=== PATIENT | male | born 1955 | race Caucasian/White ===

== ENCOUNTER 2025-02-13 05:07 | Inpatient (IN) | payer OTHER, SELFPAY ==
[2025-02-13] VITALS (24 sets, daily range): BP systolic 83–126; BP diastolic 48–72
[2025-02-13] MEDS: NSS 500 IV (02:00)
[2025-02-13 02:04] LABS: Urine Character Cloudy (Clear)
[2025-02-13 02:06] LABS: Hematocrit 44.7 % (39.0-52.0); Hemoglobin 15.5 g/dL (13.0-18.0); Mean Corp Hgb Conc. 34.7 g/dL (33.0-37.0); Mean Corpuscular Volume 86.8 fL (80.0-94.0); Nucleated Red Blood Cells % 0 % (-); Platelet Count 196 10^3/uL (130-400); Red Cell Dist. Width 14.4 % (11.5-14.5)
[2025-02-13 02:24] LABS: INR 1.16; PT 14.6 Sec (11.4-14.6)
[2025-02-13 02:29] LABS: AST (SGOT) 28 U/L (17-59); Albumin 4.5 g/dl (3.5-5.0); Alkaline Phosphatase 155 U/L (38-126); Blood Urea Nitrogen 19 mg/dl (9-20); Calcium 9.4 mg/dl (8.4-10.2); Carbon Dioxide 22 mmol/L (22-30); Chloride 105 mmol/L (98-107); Glucose 157 mg/dl (70-99); Potassium 4.4 mmol/L (3.5-5.1); Sodium 138 mmol/L (135-145); Total Protein 8.3 g/dl (6.3-8.2); eGFR > 60.00
[2025-02-13 02:49] LABS: ALT (SGPT) 25 U/L (0-50)
[2025-02-13 02:55] LABS: Urine Red Blood Cell >100 /HPF (0-2); Urine White Cell 26-30 /HPF (0-5)
[2025-02-13] MEDS: ZOSYN 100 IV (03:17)
[2025-02-13] MEDS: NSS 1500 IV (03:23)
--- NOTE | 2025-02-13 03:23 | ED.GENMED ---
History of Present Illness
General
Chief Complaint: Rectal Bleeding
Source: patient
Exam Limitations: clinical condition
Time Seen by Provider: 02/13/25 01:33
History of Present Illness
History of Present Illness:
Note:
CHIEF COMPLAINT(S)
Febrile episode and evaluation for potential infection.
HISTORY OF PRESENT ILLNESS
The patient is a 69-year-old male who presented with a fever. The patient was noted to have a febrile response with a temperature reaching 104.8 degrees Fahrenheit. He was identified as having a history of urinary tract infections and benign
prostatic hyperplasia. During examination, there was an exudate noted at the orifice of the suprapubic catheter.
PAST MEDICAL AND SURGICAL HISTORY
History of benign prostatic hyperplasia, dysphagia, urinary tract infections, insomnia, and quadriplegia
- Diabetes
- Depression
- Essential hypertension
- Bladder neck obstruction
- Incomplete C1-C4 quadriplegia
PHYSICAL EXAM
General: Febrile, alert, no acute distress. No hypoxia. Febrile
Skin: Warm, dry.
Neck: Supple, trachea midline.
Eye Ears, nose, mouth, and throat: Oral mucosa moist.
Cardiovascular: Tachycardic but regular rhythm, no edema of extremities, blood pressure 126/72 mmHg.
Respiratory: Respirations are non-labored.
Gastrointestinal: Abdomen nondistended, no pain reported.
Musculoskeletal: Upper extremities are contracted, and lower extremities show equine deformity.
Neurological: Alert and oriented to person, place, time, and situation.
PROBLEM LIST
Acute:
- Febrile episode potentially indicative of infection.
- Exudate noted at the orifice of the suprapubic catheter.
Chronic:
- Benign prostatic hyperplasia.
- Dysphagia.
- Insomnia.
- Correa Pellegia.
DIFFERENTIAL DIAGNOSIS
The Differential Diagnosis includes, in no particular order and is not limited to:
1. Urinary tract infection (UTI)
2. Catheter-associated urinary tract infection
3. Pyelonephritis
4. Sepsis
5. Influenza
6. COVID-19
7. Upper respiratory infection
8. Bacterial infection secondary to dysphagia
9. Endocarditis
10. Prostatitis
Disposition:
SUMMARY OF ENCOUNTER
The patient is a 69-year-old male with a chronic suprapubic catheter who presented to the emergency department due to concern from staff about dark red urine, rectal bleeding, vomiting, and a fever reaching 104.8�F. Laboratory results revealed mild
leukocytosis with a white blood cell count of 11,000 and a left shift indicating 91% neutrophils. The chemistry panel showed normal sodium, potassium, chloride, bicarbonate, BUN, and creatinine, but an elevated lactic acid of 4.7 mmol/L. AST and ALT
levels were normal. Urinalysis showed positive leukocyte esterase, cloudy urine, moderate bacteria, and 26 to 30 white blood cells per high power field, which suggested a urinary tract infection. Considering the patients symptoms and potential
infection, he was admitted for further management and broad-spectrum antibiotics were initiated. Additionally, 30 cc/kg of intravenous fluids were ordered. COVID-19 and influenza testing were planned, and a chest X-ray was considered.
DISPOSITION
Admit
ASSESSMENT
The patient is presenting with symptoms suggestive of a urinary tract infection, possibly catheter-associated, with additional febrile response and elevated lactic acid level, all indicative of a potential systemic infection requiring inpatient care.
EMERGENCY TREATMENTS ADMINISTERED
Broad-spectrum intravenous antibiotics and intravenous fluids at 30 cc/kg.
PLAN
Admit for further evaluation and treatment with broad-spectrum antibiotics. Consider continued monitoring of vital signs, labs, and follow-up cultures to ensure effective management of the suspected infection.
INDEPENDENT REVIEW OF LABS AND INTERPRETATION OF TESTS
- My independent review of the CBC indicates mild leukocytosis at 11,000 with a left shift and 91% neutrophils.
- My independent review of the chemistry panel shows normal sodium, potassium, chloride, bicarbonate, BUN, and creatinine, with an elevated lactic acid level of 4.7 mmol/L.
- My independent review of the urinalysis shows positive leukocyte esterase, cloudy urine, moderate bacteria, and white blood cells at 26 to 30 per high power field, indicating a suspicious UTI.
MEDICAL DECISION MAKING
- Number and Complexity of Problems Addressed: Chronic conditions affecting care include benign prostatic hyperplasia, dysphagia, insomnia, Correa Pellegia. The differential diagnosis list includes urinary tract infection (UTI), catheter-associated
UTI, pyelonephritis, sepsis, influenza, COVID-19, upper respiratory infection, bacterial infection secondary to dysphagia, endocarditis, prostatitis.
- Data:
- Category 1: Reviewed non-emergency department patient records indicating a history of urinary tract infections.
- Category 2: My independent interpretation of the urinalysis suggests a strong suspicion of UTI.
- Category 3: Consideration of COVID-19 and influenza testing, and further diagnostics to be discussed based on initial treatment response and lab results.
DIAGNOSIS
- Urinary tract infection, unspecified (ICD-10: N39.0)
- Fever, unspecified (ICD-10: R50.9)
- Leukocytosis (ICD-10: D72.829)
Phy Exam
Physical Exam
Physical Exam:
.
Sepsis
Sepsis Screening
Sepsis Assessment: Septic Shock
Sepsis Screening: Lactate >/=4mmol/L
Sepsis Screen
Sepsis Screen: Septic Shock
Date: 02/13/25
Time: 03:29
Course
Orders/Labs/Results
Orders:
Orders
02/13/25 01:30
Acetaminophen [Tylenol/Feverall] 650 mg .ROUTE .STK-MED ONE
02/13/25 01:34
IV Insert/Care/Rem.- Treatment PRN
02/13/25 01:52
Type+Screen Urgent
Complete Blood Count/With Diff Urgent
Comprehensive Metabolic Panel Urgent
Lactic Acid Urgent
Prothrombin Time Urgent
Urinalysis Reflex To Culture Urgent
Date Specimen was Collected: 02/13/25
Time Specimen was Collected: 01:36
Urine Microscopic Reflex Cult Urgent
Blood Culture Urgent
KINA Source: Blood/Venous
Specimen Description:
Date Specimen was Collected: 02/13/25
Time Specimen was Collected: 01:36
Urine Culture Urgent
KINA Source: U
Specimen Description:
Date Specimen was Collected: 02/13/25
Time Specimen was Collected: 01:36
02/13/25 01:54
0.9% Sodium Chloride 500 ml [Nss] 500 ml IV BOLUS
02/13/25 02:41
0.9% Sodium Chloride 1000 ml [Nss] 1,700 ml IV NOW STA
Piperacillin/Tazo 4.5 Gram [Zosyn] 4.5 gram in 100 ml IV NOW
02/13/25 03:11
CR Chest - 2 Views Urgent
Comment:
Reason For Exam: fever
02/13/25 03:14
COVID-19 Antigen Urgent
Source: Nasal Swab
02/13/25 03:15
Influenza A+B Rapid Molecular Urgent
KINA Source: Nasal Swab
Specimen Description:
02/13/25 03:19
Vancomycin [Vancocin] 1,500 mg 0.9% Sodium Chloride 500 ml [Nss] 500 ml IV NOW
02/13/25 03:20
0.9% Sodium Chloride 1000 ml [Nss] 1,500 ml IV BOLUS
Abnormal Lab Results
02/13/25
01:52
WBC 11.0 H 10^3/uL
(4.8-10.8)
Abs Immat Gran (auto) 0.1 H 10^3/uL
(0-0.05)
Absolute Neuts (auto) 10.1 H 10^3/uL
(1.4-6.5)
Absolute Lymphs (auto) 0.6 L 10^3/uL
(1.2-3.4)
Neutrophils % 91.7 H %
(42.2-75.2)
Lymphocytes % 5.0 L %
(20.5-51.1)
Monocytes % 1.1 L %
(1.7-9.3)
Glucose 157 H mg/dl
(70-99)
Lactic Acid 4.7 H* mmol/L
(0.7-2.0)
Alkaline Phosphatase 155 H U/L
(38-126)
Total Protein 8.3 H g/dl
(6.3-8.2)
Ur Occult Blood Reflex 4+ A
(Negative)
Leukocyte Esterase Rfl 3+ A
(Negative)
Urine RBC >100 A /HPF
(0-2)
Urine WBC (Reflex) 26-30 A /HPF
(0-5)
Urine Bacteria (Reflex) Moderate A
(Negative)
Urine Albumin (Reflex) 3+ A
(Neg - Trace)
02/13/25 01:52
02/13/25 01:52
Vital Signs
Initial and Last Documented VS:
Initial Vital Signs
Temp Pulse Resp BP Pulse Ox
104.8 F H 133 35 126/72 94
02/13/25 01:23 02/13/25 01:23 02/13/25 01:23 02/13/25 01:23 02/13/25 01:23
Last Documented Vital Signs
Temp Pulse Resp BP Pulse Ox
104.8 F H 123 26 126/72 95
02/13/25 01:23 02/13/25 02:00 02/13/25 02:00 02/13/25 01:23 02/13/25 03:29
*Pulse Oximetry
SaO2: 95
Oxygen Mode of Delivery: Room air
Patient hypoxic: no
*Product Safety Tester Interpretation
Rate: tachycardiac
Interpretation: abnormal
Rhythm: sinus
*Critical Care Note
Total Time (30-74mins, 75-104mins- exclusive of procedures): 40 minutes
ED Attending Note
-
Portions of this chart may have been created with voice recognition software.� Occasional wrong word or��sound alike� substitutions may have occurred due to the inherent limitations of voice recognition software.
Discharge Plan
Departure
Patient Disposition: Admit
Date of Disposition: 02/13/25
Time of Disposition: 03:23
Admit to: Telemetry
Presentation/result/management discussed w/ accepting MD/DO: Hospitalist
Discharge Problem:
Septic shock, Acute UTI
Referrals:
Jessica Perera CRNP [Family Provider, Family Practice]
Interventions
Interventions:
*Risk Screen - Suicide Last Done: 02/13/25 01:23
*General Assessment Last Done: 02/13/25 01:23
*Neglect/Abuse Screening Last Done: 02/13/25 01:23
*ED COVID-19 Vaccine History Last Done: 02/13/25 01:23
*ED Influenza Vaccine History Last Done: 02/13/25 01:23
[facility] Fall Risk Assessment Tool Last Done: 02/13/25 02:02
TT-Rqhprd-Xtxbzwexgn Assessment Last Done: 02/13/25 02:04
ED- Cardiac Assessment Last Done: 02/13/25 02:04
ED- Pulmonary Assessment Last Done: 02/13/25 02:04
Discharge Date and Time
Print Language: MOHAWK
[2025-02-13] MEDS: VANCOCIN 530 MG IV (03:45)
[2025-02-13 03:56] LABS: COVID-19 Antigen Negative (Negative)
--- NOTE | 2025-02-13 04:55 | HPS.HSE ---
Family Physician
-
Family Physician: EL Benjamin
Chief Complaint
-
Fever
History of Present Illness
Patient is a 69y M with PMH significant for cervical trauma and quadriplegia who presents to ED from [facility] for evaluation of fever. Patient denies any specific complaints himself. He is noted here to have fever to 104.8 degrees.
Patient denies any cough or dyspnea. No N/V. He has a chronic suprapubic catheter that was last changed 'a couple of weeks ago'. Some purulent material was noted at the suprapubic site in the ED.
Medical History
Past Medical History
Past Medical History: Reports Other
Additional Past Medical History:
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
Neurogenic Bladder with Chronic SPC
Hypertension
DM-II
Hemochromatosis
Past Surgical History: Reports Other
Additional Past Surgical History:
C1-4 Fusion
Suprapubic Catheter
Left Clavicle ORIF
T&A
Social History
Tobacco: Non-smoker
Alcohol: None
Drug: None
Living: Jail
Family History
Family History: Not pertinent
Allergies / Home Medications
Allergies reflects when Allergies were last updated in [employer].
Home Medications with original date entered in [employer]
Allergy/Medication List:
Allergies
Allergy/AdvReac Type Severity Reaction Status Date / Time
adhesive Allergy Unknown Verified 02/13/25 01:22
oxycodone Allergy Unknown Verified 02/13/25 01:22
Home Medications
acetaminophen 325 mg tablet 650 mg PO Q4H PRN constipation 02/13/25
atorvastatin 10 mg tablet 10 mg PO HS 02/13/25
baclofen 5 mg tablet 5 mg PO TID PRN muscle spasm 02/13/25
carboxymethylcellulose sodium 1 % eye drops 1 drp ophthalmic (eye) TID 02/13/25
docusate sodium 100 mg capsule 100 mg PO BID 02/13/25
escitalopram oxalate 5 mg tablet (Lexapro) 5 mg PO DAILY 02/13/25
fluocinolone 0.01 % topical body oil (Lakin-Smoothe/FS Body Oil) 1 applic topical DAILY 02/13/25
hydroxyzine HCl 25 mg tablet 25 mg PO QID PRN itching 02/13/25
ketoconazole 2 % topical cream 1 applic topical DAILY 02/13/25
magnesium hydroxide 400 mg/5 mL oral suspension (Milk of Magnesia) 400 mg PO DAILY PRN constipation 02/13/25
melatonin 3 mg tablet 6 mg PO DAILY 02/13/25
multivitamin 1 tab PO DAILY 02/13/25
ondansetron HCl 4 mg tablet 4 mg PO Q8H 02/13/25
sennosides 8.6 mg tablet (senna) 8.6 mg PO DAILY 02/13/25
tamsulosin 0.4 mg capsule 0.4 mg PO DAILY 02/13/25
tramadol 50 mg tablet 50 mg PO Q6H PRN pain 02/13/25
triamcinolone acetonide 0.1 % topical cream 1 applic topical DAILY 02/13/25
vibegron 75 mg tablet (Gemtesa) 75 mg PO DAILY 02/13/25
Review of Systems
-
History Source: Patient
A 12 point ROS was completed and negative except as noted: Yes
Constitutional: Reports Fever; Denies Fatigue
Respiratory: Denies Cough or Trouble Breathing
Cardiac: Denies Chest Pain or Palpitations
Abdomen/GI: Denies Abdominal Pain, Nausea, Vomiting or Diarrhea
: Reports Other (SPC)
Neurological: Denies Dizzy or Headache
Physical Exam
Vital Signs
Vital Signs
Temp Pulse Resp BP Pulse Ox
104.8 F H 105 21 102/71 94
02/13/25 01:23 02/13/25 03:45 02/13/25 03:45 02/13/25 03:29 02/13/25 03:45
Physical Exam
General: Other (69y M in no acute distress.)
HEENT: Moist mucous membranes and PERRLA
Respiratory: Clear; No Wheezes, Rales or Rhonchi
Cardiac: S1/S2 and Tachycardia; No Murmur
GI: Soft, Non Tender, Non Distended and Normal Bowel Sounds
Genito-urinary: Other (SPC in place. Some crusting / scant purulence at SPC site. Dark urine in catheter / drainage bag.)
Musculoskeletal: Other (Chronic contractures / muscle wasting from quadriplegia.)
Neuro: AO x 3
Laboratory Results
-
02/13/25 01:52
02/13/25 01:52
Laboratory Results
PT 14.6 Sec (11.4-14.6) 02/13/25 01:52
INR 1.16 02/13/25 01:52
Lactic Acid 4.7 mmol/L (0.7-2.0) H* 02/13/25 01:52
Total Bilirubin 0.5 mg/dl (0.2-1.3) 02/13/25 01:52
AST 28 U/L (17-59) 02/13/25 01:52
ALT 25 U/L (0-50) 02/13/25 01:52
Alkaline Phosphatase 155 U/L (38-126) H 02/13/25 01:52
Impression/Plan
-
A/P: Patient is a 69y M with PMH significant for quadriplegia and chronic SPC who presents to ED from [place] for evaluation of fever.
Sepsis
CAUTI
- Admit for further evaluation and treatment.
- Patient presents with fever to 104.8, exudate seen at suprapubic site, UA with WBC.
- Evidence of organ dysfunction in the form of lactic acidosis (4.7) and hypotension.
- Continue broad-spectrum abx coverage pending culture data.
- IVF support +/- pressors to maintain BP and perfusion.
- Follow fever curve. Follow for clinical improvement.
- Check CT A/P for further evaluation.
Traumatic Quadriplegia
Neurogenic Bladder / Chronic Suprapubic Catheter
- Continue supportive care including baclofen, pain control, etc.
- Maintain catheter drainage.
- Skin care, repositioning, etc.
DM-II
- On no current medications for DM.
- Follow glucose and cover with SSI as needed.
- Update A1C
Hemochromatosis
- Reported history and previously managed with serial phlebotomy.
- Cell counts are acceptable at present - follow for changes.
Anxiety / Depression
- Continue usual med regimen.
DVT Prophylaxis: Lovenox
Code Status: DNR
[2025-02-13] MEDS: NSS 1000 IV (04:57)
[2025-02-13 07:28] LABS: Glucose - Point of Care 125 mg/dl (70-99)
[2025-02-13] MEDS: LR 1000 IV ×2 (08:15→15:25)
[2025-02-13] MEDS: PROTONIX IV 40 MG IV (08:19)
[2025-02-13] MEDS: SENOKOT 8.6 MG PO (08:19)
[2025-02-13] MEDS: MIRALAX 17 GRAMS PO (08:19)
[2025-02-13] MEDS: ZOSYN 50 IV ×3 (08:36→21:08)
[2025-02-13] MEDS: NOVOLOG FLEXPEN-LOW RESISTANCE SC ×3 (09:02→17:06)
--- NOTE | 2025-02-13 09:05 | PTCARENOTE ---
Suprapubic catheter changed out by Dr Naresh montoya/ new 18F cherry. Old catheter appeared to be clogged - 100mL output cloudy yellow urine after change. New urine culture sent.
[2025-02-13] MEDS: LEXAPRO 5 MG PO (09:34)
--- NOTE | 2025-02-13 10:09 | PHA.VAN.IN ---
Assessment
- Assessment
Renal Function: Unknown baseline
Renal Function may be Overestimated due to: quadraplegia
Plan
- Plan
Initial / Loading Dose: 1500 MG 02/13 @03:45
Maintenance Regimen: DOSING BY LEVEL, GIVE 500 MG @1800
Monitoring: RANDOM 02/14 @0600
Pharmacokinetics Vancomycin I
- -
Patient Age: 69
Patient Sex: Male
Vancomycin Day #: 1
Indication: Genito-Urinary Tract
Requesting Provider: DANGELO LEIVA DO
Pertinent Antimicrobial Allergies:
NO PERTINENT ANTIBIOTIC ALLERGIES
Height / Weight:
Height 5 ft 8 in
Actual Weight 55.3 kg
IBW in k.4
Pertinent Past Medical History: quadraplegic, DM2, suprapubic catheter, multiple stones, BMI 18.5
- Vital Signs / Lab Results
Temp Pulse Resp BP Pulse Ox
98.1 F 94 22 106/57 96
02/13/25 10:06 02/13/25 10:00 02/13/25 10:00 02/13/25 10:00 02/13/25 07:00
Lab Results - Hematology
02/13/25
01:52
WBC 11.0 H
Lab Results - Chemistry
02/13/25
01:52
BUN 19
Creatinine 0.9
Albumin 4.5
02/13/25 02/13/25
01:52 08:33
Lactic Acid 4.7 H* 4.2 H*
Lab Results - Urine
02/13/25
01:52
Urine Nitrite (Reflex) Negative
Leukocyte Esterase Rfl 3+ A
Urine WBC (Reflex) 26-30 A
Ur Squamous Epith Cells 3-5
Urine Bacteria (Reflex) Moderate A
Microbiology Results
02/13/25 03:28 Influenza Types A & B (ÁNGEL) - Final
Nasal Swab Negative for Influenza A & B, NAAT
Negative results must be combined with clinical observations
and patient history.
Nucleic Acid Amplification test (NAAT)performed on the
[employer] NOW platform.
--- NOTE | 2025-02-13 10:49 | EDCM ---
Reviewed chart, met with pt bedside in ED. Pt resides at [facility] since 2021, states he sold his house. Registration updated information.
Needs assistance with ADLs, personal care, does not walk. They use edis lift to move him from bed to wheelchair.
PCP: Fabien Garcia
Pharmacy: [facility]
Anticipate return to [facility] when medically cleared, CM will continue to follow.
[2025-02-13 11:59] LABS: Glucose - Point of Care 140 mg/dl (70-99)
[2025-02-13] MEDS: TYLENOL 650 MG PO ×2 (13:34→21:08)
--- NOTE | 2025-02-13 14:28 | W.PN.HOSP.TC ---
Today's Communication/Plan
-
IV antibiotic pending cultures
Assessment / Plan
Assessment / Plan
Impression:
Patient is a 69y M with PMH significant for cervical trauma and quadriplegia who presents to ED from [facility] for evaluation of fever. Patient denies any specific complaints himself. He is noted here to have fever to 104.8 degrees.
Patient denies any cough or dyspnea. No N/V. He has a chronic suprapubic catheter that was last changed 'a couple of weeks ago'. Some purulent material was noted at the suprapubic site in the ED.
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
Assessment/plan:
Sepsis secondary to UTI with acute organ dysfunction.
UTI and suprapubic catheter related to each other.
Evidence of organ dysfunction in the form of lactic acidosis (4.7) and hypotension (levophed ordered).
Sepsis present on admit
Patient presents with fever to 104.8, exudate seen at suprapubic site, UA with WBC.
Patient admitted for further evaluation and started on broad-spectrum antibiotics
Continue broad-spectrum abx coverage pending culture data.
IVF support +/- pressors to maintain BP and perfusion.
Continue to monitor lactic acid and fever care
CT abdomen/pelvis showed:
1. Pronounced wall thickening and inflammatory change involving the urinary bladder, which measures up to 1 cm in thickness, consistent with cystitis. Multiple bubbles of air are seen within the wall of the urinary bladder, suggestive of
emphysematous cystitis.
2. Suprapubic catheter is present within the urinary bladder. Bubbles of air are seen within the lumen of the urinary bladder, which may be related to bladder catheterization.
3. Mild bilateral hydroureteronephrosis, without definite obstructing stone appreciated. Findings may related to chronic bladder process.
4. Right-sided nephrolithiasis, and multiple stones are also seen within the urinary bladder. No definite obstructing stone is appreciated, although stones are seen in the vicinity of each ureteral vesicular junction.
5. Bilateral perinephric stranding, which may be related to ascending urinary tract infection.
6. Enlargement of the prostate gland
Urology consulted
Traumatic Quadriplegia
Neurogenic Bladder / Chronic Suprapubic Catheter
- Appreciate urology input. Continue supportive care including baclofen, pain control, etc.
- Maintain catheter drainage.
- Skin care, repositioning, etc.
DM-II
- On no current medications for DM.
- Follow glucose and cover with SSI as needed.
Hemochromatosis
- Reported history and previously managed with serial phlebotomy.
- Cell counts are acceptable at present - follow for changes.
Anxiety / Depression
- Continue usual med regimen.
CODE STATUS: DNR
DVT prophylaxis: Lovenox
Diet: Regular diet
Disposition: IV antibiotic pending cultures
Total time spent on today's encounter was 65 minutes which included time spent in counseling the patient/family regarding diagnosis and treatment plan as listed above, goals of care, and symptom management. Case was discussed with nursing staff,
specialists, and care coordinators/case management. All labs and imaging personally reviewed by me. Remainder the time spent in detailed review of previous records, lab data, imaging, and other medical provider documentation.
Anticipated Discharge: > 48 hours
Subjective/Interval History
-
Date of Service: February 13, 2025
Patient seen and examined at bedside, denies any chest pain or shortness of breath, fever improved.
Objective Data
-
Labs:
Laboratory Results
02/13/25
01:52
PT 14.6
INR 1.16
Sodium 138
Potassium 4.4
Chloride 105
Carbon Dioxide 22
BUN 19
Creatinine 0.9
Glucose 157 H
Calcium 9.4
Total Bilirubin 0.5
AST 28
ALT 25
Alkaline Phosphatase 155 H
Vital Signs:
Vital Signs
Temp Pulse Resp BP Pulse Ox
100 F 107 29 97/59 95
02/13/25 13:30 02/13/25 13:00 02/13/25 13:00 02/13/25 13:00 02/13/25 13:00
Physical Exam
-
General: Well Developed, Well Nourished and Comfortable
HEENT: Normocephalic, Atraumatic, Moist Mucous Membranes, No Ptosis, PERRLA and Nose Appears Normal
Respiratory: Rales and Non Labored Respirations
Cardiac: Regular Rhythm and S1/S2
Breast: Deferred by me
GI: Soft, Nontender, Nondistended and Normal Bowel Sounds
Genito-urinary: Other (Suprapubic cath)
Musculoskeletal: No Clubbing and No Cyanosis
Skin: Warm
Neuro: Awake, Alert, Oriented, AO x 3 and Other (Baseline quadriplegia)
Psych: Calm
Data Reviewed
-
Diagnostic Radiology: Image personally visualized and interpreted and Report Reviewed by me
CT Scan: Image personally visualized and interpreted and Report Reviewed by me
Ultrasound: Image personally visualized and interpreted and Report Reviewed by me
MRI: Image personally visualized and interpreted and Report Reviewed by me
Medical Tests (Nuc Med, Echo etc): Image personally visualized and interpreted and Report Reviewed by me
Labs: Labs Reviewed by me
Old Records: Reviewed
[2025-02-13 16:23] LABS: Glucose - Point of Care 145 mg/dl (70-99)
[2025-02-13] MEDS: LOVENOX 40 MG SC (18:01)
--- NOTE | 2025-02-13 18:32 | CONS.URO ---
Consultation
-
Date/Time Consultation Performed: 0800 02/13
Performing Provider: Maryfer
Reason for Consultation: UTI
Medical History
History of Present Illness
69M with history of c spine injury, neurogenic bladder
Chronic indwelling suprapubic tube
presents to ED from [facility] for evaluation of fever.
Patient denies any specific complaints himself.
He is noted here to have fever to 104.8 degrees. Patient denies any cough or dyspnea. No N/V.
He has a chronic suprapubic catheter that was last changed 'a couple of weeks ago'
Does not currently have a urologist that he knows of
Denies flank pain or abdominal pain
Denies past issues with kidney stones
CT showed mild b/l hydronephrosis to level of the bladder, with SPT in place and bladder incompletely drained
Also showed emphysematous cystitis
Urology consulted for recommendations
Past Medical History:
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
Neurogenic Bladder with Chronic SPC
Hypertension
DM-II
Hemochromatosis
Past Surgical History:
C1-4 Fusion
Suprapubic Catheter
Left Clavicle ORIF
T&A
Social History
Living: Senior Living
Employment: Not Employed
Family History
Family History: Reviewed & Not Pertinent
Allergies/Home Medications
Allergies
Allergy/AdvReac Type Severity Reaction Status Date / Time
adhesive Allergy Unknown Verified 02/13/25 01:22
oxycodone Allergy Unknown Verified 02/13/25 01:22
Home Medications
�Medication �Instructions �Recorded �Confirmed �Type
acetaminophen 325 mg tablet 650 mg PO Q4HPRN PRN mild pain 02/13/25 02/13/25 History
atorvastatin 10 mg tablet 10 mg PO HS High Cholesterol 02/13/25 02/13/25 History
baclofen 5 mg tablet 5 mg PO TIDPRN PRN muscle spasm 02/13/25 02/13/25 History
bisacodyl 10 mg rectal suppository 10 mg NH DAILYPRN PRN if no bm by 02/13/25 02/13/25 History
(Dulcolax (bisacodyl)) 4th day give on 5th day
carboxymethylcellulose sodium 1 % 2 drp BOTH EYES TID Eye Condition 02/13/25 02/13/25 History
eye drops
docusate sodium 100 mg capsule 100 mg PO BID Constipation 02/13/25 02/13/25 History
escitalopram oxalate 5 mg tablet 5 mg PO DAILY Mental Health/Anxiety 02/13/25 02/13/25 History
(Lexapro)
fluocinolone 0.01 % topical body 1 applic topical DAILY scalp 02/13/25 02/13/25 History
oil (Nunda-Smoothe/FS Body Oil)
hydroxyzine HCl 25 mg tablet 25 mg PO Q4HPRN PRN itching 02/13/25 02/13/25 History
ketoconazole 2 % topical cream 1 applic topical DAILY scalp 02/13/25 02/13/25 History
magnesium hydroxide 400 mg/5 mL 2,400 mg PO [id number] PRN 02/13/25 02/13/25 History
oral suspension (Milk of Magnesia) constipation
melatonin 3 mg tablet 6 mg PO HS Sleep 02/13/25 02/13/25 History
ondansetron HCl 4 mg tablet 4 mg PO Q8HPRN PRN nausea 02/13/25 02/13/25 History
sennosides 8.6 mg tablet (senna) 8.6 mg PO DAILY Constipation 02/13/25 02/13/25 History
sodium chloride 0.65 % nasal spray 2 spray intranasal Q1HPRN PRN 02/13/25 02/13/25 History
aerosol dryness
sodium phosphates 19 gram-7 118 ml NH DAILYPRN PRN if no bm by 02/13/25 02/13/25 History
gram/118 mL enema (Fleet Enema) 5th day give on day 6
tamsulosin 0.4 mg capsule 0.4 mg PO DAILY Urinary Issue 02/13/25 02/13/25 History
therapeutic multivitamin 1 tab PO DAILY Supplement 02/13/25 02/13/25 History
tramadol 50 mg tablet 50 mg PO Q4HPRN PRN moderate pain 02/13/25 02/13/25 History
triamcinolone acetonide 0.1 % 1 applic topical DAILY periwound 02/13/25 02/13/25 History
topical cream
vibegron 75 mg tablet (Gemtesa) 75 mg PO DAILY Urinary Issue 02/13/25 02/13/25 History
Physical Exam
Vital Signs
Vital Signs
Temp Pulse Resp BP Pulse Ox
98.3 F 87 19 91/50 98
02/13/25 17:55 02/13/25 18:05 02/13/25 18:05 02/13/25 18:05 02/13/25 18:05
Lab / Testing Results
Laboratory Results
02/13/25 01:52
02/13/25 01:52
Physical Exam
General: Well Developed, Well Nourished and No Apparent Distress
Respiratory: Clear and Non Labored Respirations
GI: Soft and Non Distended
Genito-urinary: No Costovertebral Tend, Turbid Urine and Suprapubic Tube
Neuro: AO x 3
Psych: Calm and Intact Judgement
Assessment / Plan
-
69M with neurogenic bladder and chronic suprapubic tube
Admitted with septic UTI and emphysematous cystitis
mild bilateral hydronephrosis
UTI
- Continue IV abx pending cultures
- Emphysematous cystitis does not require surgical intervention - treat as complicated UTI
Hydronephrosis
- Mild b/l hydro likely due to poorly draining SPT and high pressure neurogenic bladder
- SP tube replaced at bedside with 200cc output of purulent urine
- Less likely due to stones near UVJ but would need to consider re-eval if infection not improving
Kidney stones
- bilateral renal stones, small nonobstructing distal ureteral stone, several bladder stones including likely R hutch diverticulum or chronic stone in distal ureter
- No acute intervention at this time
--- NOTE | 2025-02-13 18:38 | PTCARENOTE ---
2 RN's from floor in to assess patient's vein for next LA due at 1854. Patient stating 'do not stick me' multiple times. Patient is oriented and patient was not stuck for blood work. Will pass on to next shift.
--- NOTE | 2025-02-13 20:00 | PTCARENOTE ---
Patient received in bed, asleep, awakens easily, oriented x2-3. NSR on monitor, blood pressure as documented. Palpable pulses throughou, no edema noted. Lungs clear, pulse ox 96% on room air. Abdomen soft with positive bowel sounds. SPT
draining laura urine with sediment. Foam dressing intact on sacrum. #22 g in left hand with IVF infusing as ordered. #20 g in LFA flushed and patent. Patient refusing repeat blood work at this time
[2025-02-13] MEDS: VANCOCIN HCL 500 MG 100 IV (20:01)
[2025-02-13] MEDS: LIPITOR 10 MG PO (21:08)
[2025-02-13 23:11] LABS: Glucose - Point of Care 147 mg/dl (70-99)
[2025-02-14] VITALS (11 sets, daily range): BP systolic 92–126; BP diastolic 50–65; BMI 18.5
[2025-02-14] MEDS: LR 1000 IV ×2 (01:10→07:55)
[2025-02-14] MEDS: ZOSYN 50 IV ×4 (02:15→20:04)
--- NOTE | 2025-02-14 05:27 | PTCARENOTE ---
Unable to obtain morning labs, phlebotomy notified
[2025-02-14 07:44] LABS: Glucose - Point of Care 108 mg/dl (70-99)
[2025-02-14] MEDS: NOVOLOG FLEXPEN-LOW RESISTANCE SC (07:50)
[2025-02-14] MEDS: PROTONIX IV 40 MG IV (07:52)
[2025-02-14] MEDS: NSS (PRESERVATIVE FREE) 10 ML IV (07:52)
[2025-02-14] MEDS: MIRALAX PO (07:53)
[2025-02-14] MEDS: SENOKOT PO (07:53)
[2025-02-14] MEDS: LEXAPRO 5 MG PO (07:53)
--- NOTE | 2025-02-14 08:21 | PTCARENOTE ---
phlebotomy unable to obtain labs. MD notified. patient with flat affect, communicates with one word answers. refused breakfast. refused bowel regimen meds. denies pain. BP 119/58 with MAP 76. care ongoing.
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
[2025-02-14 10:39] LABS: Hematocrit 35.5 % (39.0-52.0); Hemoglobin 12.2 g/dL (13.0-18.0); Mean Corp Hgb Conc. 34.4 g/dL (33.0-37.0); Mean Corpuscular Volume 86.8 fL (80.0-94.0); Platelet Count 153 10^3/uL (130-400); Red Cell Dist. Width 15.4 % (11.5-14.5)
[2025-02-14 10:58] LABS: ALT (SGPT) 25 U/L (0-50); AST (SGOT) 33 U/L (17-59); Albumin 3.2 g/dl (3.5-5.0); Alkaline Phosphatase 122 U/L (38-126); Blood Urea Nitrogen 13 mg/dl (9-20); Calcium 8.4 mg/dl (8.4-10.2); Carbon Dioxide 26 mmol/L (22-30); Estimated Creatinine Clearance 53 ml/min; Glucose 120 mg/dl (70-99); Magnesium 1.4 mg/dl (1.6-2.3); Potassium 3.6 mmol/L (3.5-5.1); Sodium 135 mmol/L (135-145); Total Protein 6.5 g/dl (6.3-8.2); eGFR > 60.00
[2025-02-14 11:02] LABS: Chloride 107 mmol/L (98-107)
--- NOTE | 2025-02-14 11:29 | CM ---
F/U: Hospitalist said that patient has bacteremia so not ready today or this weekend. Return referral sent to [facility] where patient lives. PLAN: Return to [facility] when ready.
[2025-02-14 11:45] LABS: Glucose - Point of Care 163 mg/dl (70-99)
--- NOTE | 2025-02-14 12:00 | PHA.VAN.FU ---
Vancomycin Assessment / Plan
- Assessment
Renal Function: Stable
WBC's are: Trending Up
In the past 24 hrs, patient has been: Afebrile
Concomitant Antimicrobials: piperacillin/tazobactam
- Assessment - Therapeutic Drug Monitoring
Random Level: 12.6 - drawn ~14H after previous dose of 500mg (received total 2g 02/13)
- Dosing Plan
Dosing by Level: Re-dose today (Vanc 1250mg x1)
Vanc 1250mg Q24H predicts AUC 470 - 562, peak 35 - 38.2, trough 10 - 12.9
Based on IBW for dosing weight and CrCl range using IBW and TBW
Given BMI < 18.5, may have higher clearance than population PK predicts
Will keep dosing by level for today to give trial of this dosing with random in AM
- Monitoring Plan
Random Level: 12/ 0600
- Follow Up
Pharmacy will continue to follow.
Vancomycin Follow UP
- -
Patient Age: 69
Patient Sex: Male
Vancomycin Day #: 2
Indication: Genito-Urinary Tract
Requesting Provider: Dr. Phelps
Pertinent Antimicrobial Allergies:
no pertinent antibiotic allergies
Height / Weight:
Height 5 ft 8 in
Actual Weight 55.3 kg
IBW in k.4
Pertinent Past Medical History: quadraplegic, DM2, suprapubic catheter, multiple stones, BMI 18.5
- Vital Signs / Lab Results
Temp Pulse Resp BP Pulse Ox
98 F 67 17 119/58 94
02/14/25 07:30 02/14/25 09:00 02/14/25 09:00 02/14/25 08:00 02/14/25 09:00
Lab Results - Hematology
02/13/25 02/14/25
01:52 09:49
WBC 11.0 H 17.7 H
Lab Results - Chemistry
02/13/25 02/14/25
01:52 09:49
BUN 19 13
Creatinine 0.9 1.0
Estimated Creat Clear 53
Albumin 4.5 3.2 L
02/13/25 02/13/25 02/13/25
01:52 08:33 13:29
Lactic Acid 4.7 H* 4.2 H* 4.2 H*
02/14/25 02/14/25
00:54 09:49
Lactic Acid Cancelled 1.1
Lab Results - Urine
02/13/25
01:52
Urine Nitrite (Reflex) Negative
Leukocyte Esterase Rfl 3+ A
Ur Squamous Epith Cells 3-5
Microbiology Results
02/13/25 01:52 Blood Culture - Preliminary
Blood/Venous Klebsiella pneumoniae group
Proteus species
Enterococcus species
Gram Stain - Preliminary
02/13/25 08:56 Urine Culture - Preliminary
Urine
02/13/25 01:52 Urine Culture - Preliminary
Urine
02/13/25 03:28 Influenza Types A & B (ÁNGEL) - Final
Nasal Swab Negative for Influenza A & B, NAAT
Negative results must be combined with clinical observations
and patient history.
Nucleic Acid Amplification test (NAAT)performed on the
[employer] platform.
Therapeutic Drug Monitoring
Random Vancomycin 12.6 ug/ml 02/14/25 09:49
[2025-02-14 12:26] LABS: Glycohemoglobin (HgbA1c) 5.8 % (4.0-5.9)
[2025-02-14] MEDS: NOVOLOG FLEXPEN-LOW RESISTANCE 1 UNITS SC ×2 (13:10→17:44)
[2025-02-14] MEDS: VANCOCIN 275 MG IV (13:16)
[2025-02-14] MEDS: ULTRAM 50 MG PO (13:20)
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
[2025-02-14] MEDS: NEUTRA-PHOS POWDER PACKET 250 MG PO ×2 (15:10→22:18)
[2025-02-14] MEDS: MAGNESIUM SULFATE 50 IV (15:10)
--- NOTE | 2025-02-14 15:17 | CON.ID ---
Consultation
-
Date/Time Consultation Requested: 02/14/25 14:00
Date/Time Consultation Performed: 02/14/25 15:17
Requesting Provider: Dr Carpio
Performing Provider: Dr Andres
Reason for Consultation: polymicrobial bacteremia
Chief Complaint / Past History
Chief Complaint
fever
History of Present Illness
Mr Faustin is a 69 year old male with past medical history notable for quadriplegia due to c spine trauma, neurogenic bladder with chronic suprapubic tube, dm2, cachexia who presented here from [facility] yesterday for fevers to 104.8. Denies
cough, dyspnea, nausea, vomiting, flank pain, abdominal pain. No complaints, reports he does have some sensation below the neck. Noted some purulent material at the SP site in the ER. Tube was last changed a few weeks ago. Urine was cloudy on
arrival. No history of stones. Has a small sacral decubitus ulcer that waxes and wanes.
Since arrival here Tmax was 104.8 no fevers since then, BP was hypotensive - now stabilized, wbc initially 11 today 17, hgb 12, plt 153, L shift was present on arrival, na 138, cr 0.9, lactic acid 4.7 now 1.1, t bili 0.6, ast 33, alt 25, alk phos
122, UA >100 rb and 26-30 wbc with moderate bacteria, covid ag negative, 02/13 CT with IV contrast with concern for emphysematous cystitis, mild BL hydroureteronephrosis without definite obstructing stone, bilateral perinephric stranding, sp tube
replaced at bedside with 200 ccs of purulent urine output, patient has been on vancomycin and zosyn, initial blood culture with K pneumoniae, Proteus, Enterococcus, urine culture x2 in progress, repeat blood cultures x2 are also in progress no
growth to date, ID is consulted for assistance with management.
Past History
Additional Past Medical History:
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
Neurogenic Bladder with Chronic SPC
Hypertension
DM-II
Hemochromatosis
Additional Past Surgical History:
C1-4 Fusion
Suprapubic Catheter
Left Clavicle ORIF
T&A
Allergy History:
adhesive Allergy (Verified 02/13/25 01:22)
Unknown
oxycodone Allergy (Verified 02/13/25 01:22)
Unknown
Medications Reviewed: Yes
Social History
Tobacco: Non-Smoker
Alcohol: None
Drug: None
Family History
Family History: Not Pertinent
Review of Systems
Review of Systems
A 12 point ROS was completed and negative except as noted: Yes
Constitutional: Reports Fever; Denies Fatigue
Respiratory: Denies Cough or Trouble Breathing
Cardiac: Denies Chest Pain or Palpitations
Abdomen/GI: Denies Abdominal Pain, Nausea, Vomiting or Diarrhea
: Reports Other (SPC)
Neurological: Denies Dizzy or Headache
Vital Signs
Temp Pulse Resp BP Pulse Ox
99.5 F 67 17 119/58 94
02/14/25 12:04 02/14/25 09:00 02/14/25 09:00 02/14/25 08:00 02/14/25 09:00
Physical Exam
Physical Exam
Constitutional: No Acute Distress
Cardiovascular: Regular Rate and S1/S2; Negative Murmur or Rub
Pulmonary: Clear and Symmetric; Negative Wheezes, Rales or Rhonchi
Gastrointestinal: Soft, Non Tender, Non Distended and Normal Bowel Sounds
Genito-Urinary: Clear Urine and Other (suprapubic tube); Negative Suprapubic Tenderness
Skin: Warm and Dry; Negative Rash or Jaundice
Wound: Other (tiny about 1 cm x 1/4 cm superficial stage II pressure ulcer without surrouding erythema, warmth or drainage )
Lab / Diagnostic Study Results
02/14/25 09:49
02/14/25 09:49
Abs Immat Gran (auto) 0.1 10^3/uL (0-0.05) H 02/13/25 01:52
Absolute Neuts (auto) 10.1 10^3/uL (1.4-6.5) H 02/13/25 01:52
Absolute Lymphs (auto) 0.6 10^3/uL (1.2-3.4) L 02/13/25 01:52
Absolute Monos (auto) 0.1 10^3/uL (0.1-0.6) 02/13/25 01:52
Absolute Basos (auto) 0.1 10^3/uL (0-0.2) 02/13/25 01:52
Immature Gran % 0.5 % (0-0.5) 02/13/25 01:52
Neutrophils % 91.7 % (42.2-75.2) H 02/13/25 01:52
Lymphocytes % 5.0 % (20.5-51.1) L 02/13/25 01:52
Monocytes % 1.1 % (1.7-9.3) L 02/13/25 01:52
Eosinophils % 1.2 % (0-6) 02/13/25 01:52
Basophils % 0.5 % (0-2) 02/13/25 01:52
PT 14.6 Sec (11.4-14.6) 02/13/25 01:52
INR 1.16 02/13/25 01:52
Lactic Acid 1.1 mmol/L (0.7-2.0) 02/14/25 09:49
Ur Squamous Epith Cells 3-5 /LPF (Few) 02/13/25 01:52
Microbiology Results
Micro:
02/13/25 09:15 MRSA Screen - Final
Nose No Methicillin Resistant Staphylococcus aureus isolated.
02/14/25 10:04 Blood Culture - Pending
Blood/Venous
02/14/25 09:49 Blood Culture - Pending
Blood/Venous
02/13/25 01:52 Blood Culture - Preliminary
Blood/Venous Klebsiella pneumoniae group
Proteus species
Enterococcus species
Gram Stain - Preliminary
02/13/25 08:56 Urine Culture - Preliminary
Urine
02/13/25 01:52 Urine Culture - Preliminary
Urine
02/13/25 03:28 Influenza Types A & B (ÁNGEL) - Final
Nasal Swab Negative for Influenza A & B, NAAT
Negative results must be combined with clinical observations
and patient history.
Nucleic Acid Amplification test (NAAT)performed on the
[employer] platform.
Assessment / Plan
Polymicrobial blood culture
Complicated UTI
lactic acidosis - resolved
Suprapubic catheter for neurogenic bladder
quadriplegia
stage II
- 02/13 blood culture x1 done with K pneumoniae, Proteus and Enterococcus
- expect polymicrobial urine cultures - asked lab to ID the pathogens
- 02/14 repeat blood cultures x2 in progress
- CT a/p with IV contrast without abdominal or pelvic lesions
- tiny about 1 cm x 1/4 cm superficial stage II pressure ulcer without surrouding erythema, warmth or drainage unlikely to be the source of bacteremia
- continue zosyn
- continue vancomycin pending sensitivities on the enterococcusx
--- NOTE | 2025-02-14 15:20 | VATNOTE ---
Notified by PCN of midline order for patient. Pt assessed with PCN as pt is very contracted 2/2 quadriplegia. Per PCN, midline is primarily for blood draws as IMU RNs and phlebotomy were unable to obtain blood specimens this AM. Pt's R arm does not
move at all, and pt's L arm does not straighten or rotate very much. Both arms warmed, #22 gauge IV placed in pt's L forearm and all blood work and one set of blood cultures drawn. #24 gauge IV placed in pt's R hand and second set of blood cultures
drawn. notified that pt is too contracted to place a midline and we were able to draw the blood work. Advised that a central line (subclavian or IJ) would be most appropriate for patient in the setting of the contracted extremities but given
bacteremia was not ideal. states that midline is not needed if we can get labs. PCN notified. Will reevaluate if needs change.
--- NOTE | 2025-02-14 16:48 | W.PN.URO.CBU ---
Today's Communication / Plan
-
Continue antibiotics per ID
Assessment / Plan
-
69M with neurogenic bladder and chronic suprapubic tube
Admitted with septic UTI and emphysematous cystitis
mild bilateral hydronephrosis
UTI
- Continue IV abx pending cultures, course per ID
- Emphysematous cystitis does not require surgical intervention - treat as complicated UTI
Hydronephrosis
- Mild b/l hydro likely due to poorly draining SPT and high pressure neurogenic bladder
- SP tube replaced at bedside with 200cc output of purulent urine
- Less likely due to stones near UVJ but would need to consider re-eval if infection worsens
Kidney stones
- bilateral renal stones, small nonobstructing distal ureteral stone, several bladder stones including likely R hutch diverticulum or chronic stone in distal ureter
- No acute intervention
Diagnosis
-
Date of Service: February 14, 2025
-
Patient Diagnosis:
Sepsis
UTI
Neurogenic bladder
emphysematous cystitis
Post Op Day:
Subjective
-
no events
Objective
-
Vital Signs
Temp Pulse Resp BP Pulse Ox
99.5 F 67 17 119/58 94
02/14/25 12:04 02/14/25 09:00 02/14/25 09:00 02/14/25 08:00 02/14/25 09:00
Intake and Output
02/13/25 02/14/25 02/15/25
06:59 06:59 06:59
Intake Total 1999 / 1999
Output Total 1050 / 1050
Balance 950 / 950
Intake:
IV fluids (Total) 1800 / 1800
IV piggybacks 200 / 200
Output:
Urine, [place] 1050 / 1050
Laboratory Results
02/14/25 09:49
02/14/25 09:49
Physical Exam
-
General - well developed, well nourished, no acute distress
Chest - clear bilaterally
Abdomen - soft, non-tender, positive bowel sounds, no CVAT, no incisional pain or distention
SPT in place , clear
--- NOTE | 2025-02-14 17:33 | PTCARENOTE ---
complete bed bath given and wound care to sacrum completed. patient asisted with meals. reports improved appetite. VSS. Tyleno; given for mild temp
[2025-02-14 17:37] LABS: Glucose - Point of Care 158 mg/dl (70-99)
[2025-02-14] MEDS: TYLENOL 650 MG PO ×2 (17:44→22:19)
[2025-02-14] MEDS: LOVENOX 40 MG SC (17:44)
[2025-02-14 21:35] LABS: Glucose - Point of Care 180 mg/dl (70-99)
[2025-02-14] MEDS: LIPITOR 10 MG PO (22:19)
[2025-02-15] VITALS (11 sets, daily range): BP systolic 112–149; BP diastolic 57–74; BMI 22.4
[2025-02-15] MEDS: LR 1000 IV ×4 (00:59→14:24)
[2025-02-15] MEDS: ZOSYN 50 IV ×4 (02:52→20:04)
[2025-02-15] MEDS: ATARAX 25 MG PO ×2 (05:17→14:21)
[2025-02-15 07:21] LABS: Hematocrit 34.4 % (39.0-52.0); Hemoglobin 12.1 g/dL (13.0-18.0); Mean Corp Hgb Conc. 35.2 g/dL (33.0-37.0); Mean Corpuscular Volume 83.7 fL (80.0-94.0); Nucleated Red Blood Cells % 0 % (-); Platelet Count 125 10^3/uL (130-400); Red Cell Dist. Width 15.0 % (11.5-14.5)
[2025-02-15] MEDS: NEUTRA-PHOS POWDER PACKET 250 MG PO (08:32)
[2025-02-15] MEDS: NOVOLOG FLEXPEN-LOW RESISTANCE SC ×3 (08:32→18:42)
[2025-02-15] MEDS: LIORESAL 5 MG PO ×2 (08:32→20:15)
[2025-02-15] MEDS: SENOKOT 8.6 MG PO (08:32)
[2025-02-15] MEDS: LEXAPRO 5 MG PO (08:32)
[2025-02-15] MEDS: ULTRAM 50 MG PO ×3 (08:32→20:15)
[2025-02-15] MEDS: MIRALAX 17 GRAMS PO (08:33)
[2025-02-15] MEDS: PROTONIX IV 40 MG IV (08:33)
[2025-02-15] MEDS: NSS (PRESERVATIVE FREE) 10 ML IV (08:33)
[2025-02-15] MEDS: FLUSH (NSS) 2 FLUSH IV (08:34)
[2025-02-15 08:38] LABS: ALT (SGPT) 36 U/L (0-50); AST (SGOT) 50 U/L (17-59); Albumin 3.1 g/dl (3.5-5.0); Alkaline Phosphatase 112 U/L (38-126); Blood Urea Nitrogen 12 mg/dl (9-20); Calcium 8.3 mg/dl (8.4-10.2); Carbon Dioxide 22 mmol/L (22-30); Chloride 110 mmol/L (98-107); Estimated Creatinine Clearance 71 ml/min; Glucose 129 mg/dl (70-99); Magnesium 1.9 mg/dl (1.6-2.3); Potassium 3.9 mmol/L (3.5-5.1); Sodium 136 mmol/L (135-145); Total Protein 6.4 g/dl (6.3-8.2); eGFR > 60.00
[2025-02-15 08:40] LABS: Glucose - Point of Care 133 mg/dl (70-99)
--- NOTE | 2025-02-15 09:13 | PHA.VAN.FU ---
Vancomycin Assessment / Plan
- Assessment
Renal Function: SCR Decreasing
WBC's are: Trending Down
In the past 24 hrs, patient has been: Afebrile
Concomitant Antimicrobials: Piperacillin-tazobactam
- Assessment - Therapeutic Drug Monitoring
Random Level: 12.9 ~17.5hrs post Vanc 1250mg
- Dosing Plan
Adjust Regimen to: Vanc 1250mg IV q24H
- Monitoring Plan
No level(s) ordered at this time: Consider levels after 02/17 dose
- Follow Up
Pharmacy will continue to follow.
Vancomycin Follow UP
- -
Patient Age: 69
Patient Sex: Male
Vancomycin Day #: 3
Indication: Genito-Urinary Tract
Requesting Provider: Dr. Phelps
Pertinent Antimicrobial Allergies:
no pertinent antibiotic allergies
Height / Weight:
Height 5 ft 8 in
Actual Weight 66.8 kg
IBW in k.4
Pertinent Past Medical History: quadraplegic, DM2, suprapubic catheter, multiple stones, BMI 18.5
- Vital Signs / Lab Results
Temp Pulse Resp BP Pulse Ox
97.8 F 55 18 133/74 95
02/15/25 08:10 02/15/25 08:11 02/15/25 08:11 02/15/25 08:11 02/15/25 08:11
Lab Results - Hematology
02/13/25 02/14/25 02/15/25
01:52 09:49 06:30
WBC 11.0 H 17.7 H 15.0 H
Lab Results - Chemistry
02/13/25 02/14/25 02/15/25
01:52 09:49 06:30
BUN 19 13 12
Creatinine 0.9 1.0 0.9
Estimated Creat Clear 53 71
Albumin 4.5 3.2 L 3.1 L
02/13/25 02/13/25 02/13/25
01:52 08:33 13:29
Lactic Acid 4.7 H* 4.2 H* 4.2 H*
02/14/25 02/14/25
00:54 09:49
Lactic Acid Cancelled 1.1
Microbiology Results
02/13/25 01:52 Blood Culture - Preliminary
Blood/Venous Klebsiella pneumoniae
Morganella morganii
Proteus species
Enterococcus species
Gram Stain - Preliminary
02/13/25 08:56 Urine Culture - Preliminary
Urine Gram negative bacilli
02/13/25 09:15 MRSA Screen - Final
Nose No Methicillin Resistant Staphylococcus aureus isolated.
02/13/25 01:52 Urine Culture - Preliminary
Urine
Therapeutic Drug Monitoring
Random Vancomycin 12.9 ug/ml 02/15/25 06:30
--- NOTE | 2025-02-15 10:44 | W.PN.ID1 ---
Date of Service
Date of Service: February 15, 2025
Today's Communication
continue vancomycin and zosyn
Assessment / Plan
Polymicrobial blood culture
Complicated UTI
lactic acidosis - resolved
Suprapubic catheter for neurogenic bladder
quadriplegia
stage II
- 02/13 blood culture x1 done with K pneumoniae, M morganii, Proteus and Enterococcus
- expect polymicrobial urine cultures - asked lab to ID the pathogens
- 02/14 repeat blood cultures x2 in progress
- CT a/p with IV contrast without abdominal or pelvic lesions
- tiny about 1 cm x 1/4 cm superficial stage II pressure ulcer without surrounding erythema, warmth or drainage unlikely to be the source of bacteremia
- continue zosyn
- continue vancomycin pending sensitivities on the enterococcus
Chief Complaint
-: Other (Polymicrobial blood culture, Complicated UTI)
Subjective / Review of Systems
no idaina fevers
bp stable
no events overnight
no complaints
Vital Signs / Physical Exam
Vital Signs
Vital Signs
Temp Pulse Resp BP Pulse Ox
97.8 F 55 18 133/74 94
02/15/25 08:10 02/15/25 08:11 02/15/25 08:11 02/15/25 08:11 02/15/25 08:30
Physical Exam
Constitutional: No Acute Distress
Cardiovascular: Regular Rate and S1/S2; Negative Murmur or Rub
Pulmonary: Clear and Symmetric; Negative Wheezes or Rales
Gastrointestinal: Soft, Non Tender, Non Distended and Normal Bowel Sounds
Skin: Warm and Dry; Negative Rash or Jaundice
Objective Data
Lab Data
Lab Results
02/15/25 06:30
02/15/25 06:30
PT 14.6 Sec (11.4-14.6) 02/13/25 01:52
INR 1.16 02/13/25 01:52
Estimated Creat Clear 71 ml/min 02/15/25 06:30
Lactic Acid 1.1 mmol/L (0.7-2.0) 02/14/25 09:49
Total Bilirubin 0.6 mg/dl (0.2-1.3) 02/15/25 06:30
AST 50 U/L (17-59) 02/15/25 06:30
ALT 36 U/L (0-50) 02/15/25 06:30
Alkaline Phosphatase 112 U/L (38-126) 02/15/25 06:30
Most recent labs reviewed.
Micro Results:
02/14/25 10:04 Blood Culture - Preliminary
Blood/Venous No Growth in 24 hours- Final report to follow
02/14/25 09:49 Blood Culture - Preliminary
Blood/Venous No Growth in 24 hours- Final report to follow
02/13/25 01:52 Blood Culture - Preliminary
Blood/Venous Klebsiella pneumoniae
Morganella morganii
Proteus species
Enterococcus species
Gram Stain - Preliminary
02/13/25 08:56 Urine Culture - Preliminary
Urine Gram negative bacilli
02/13/25 09:15 MRSA Screen - Final
Nose No Methicillin Resistant Staphylococcus aureus isolated.
02/13/25 01:52 Urine Culture - Preliminary
Urine
02/13/25 03:28 Influenza Types A & B (ÁNGEL) - Final
Nasal Swab Negative for Influenza A & B, NAAT
Negative results must be combined with clinical observations
and patient history.
Nucleic Acid Amplification test (NAAT)performed on the
[employer] platform.
[2025-02-15] MEDS: VANCOCIN 275 MG IV (10:49)
[2025-02-15 12:06] LABS: Glucose - Point of Care 131 mg/dl (70-99)
--- NOTE | 2025-02-15 12:14 | PTCARENOTE ---
Patient AAOX3, drowsy but easily arousable. SB on monitor. VS stable. Afebrile this morning. Patient is a quad but can wiggle fingers on left hand. Patient needs to be fed his meals, good appetite. INC of large soft BM this am. Stage 2 on
sacrum with silicone foam intact. Sacrum red but blanchable. Medicated with ultram for all over pain rating 7/10. Will monitor.
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
[2025-02-15] MEDS: LR IV (14:24)
[2025-02-15] MEDS: TYLENOL 650 MG PO (16:31)
[2025-02-15 17:26] LABS: Glucose - Point of Care 159 mg/dl (70-99)
[2025-02-15] MEDS: LOVENOX 40 MG SC (18:41)
[2025-02-15] MEDS: LIPITOR 10 MG PO (20:16)
[2025-02-15 21:38] LABS: Glucose - Point of Care 145 mg/dl (70-99)
[2025-02-16] VITALS (11 sets, daily range): BP systolic 112–141; BP diastolic 57–78; BMI 23.0
--- NOTE | 2025-02-16 02:00 | PTCARENOTE ---
pt desat to 89-90% and sustaining on room air while asleep. Oxygen placed at 2L nasal canula for sleep. Pox 96%. Continuing to monitor
[2025-02-16] MEDS: ZOSYN 50 IV ×4 (02:45→20:20)
[2025-02-16 06:16] LABS: Hematocrit 34.4 % (39.0-52.0); Hemoglobin 11.8 g/dL (13.0-18.0); Mean Corp Hgb Conc. 34.3 g/dL (33.0-37.0); Mean Corpuscular Volume 88.7 fL (80.0-94.0); Nucleated Red Blood Cells % 0 % (-); Platelet Count 164 10^3/uL (130-400); Red Cell Dist. Width 15.1 % (11.5-14.5)
[2025-02-16 06:31] LABS: ALT (SGPT) 56 U/L (0-50); AST (SGOT) 50 U/L (17-59); Albumin 3.3 g/dl (3.5-5.0); Alkaline Phosphatase 160 U/L (38-126); Blood Urea Nitrogen 10 mg/dl (9-20); Calcium 8.3 mg/dl (8.4-10.2); Carbon Dioxide 22 mmol/L (22-30); Chloride 104 mmol/L (98-107); Estimated Creatinine Clearance 66 ml/min; Glucose 115 mg/dl (70-99); Potassium 3.7 mmol/L (3.5-5.1); Sodium 133 mmol/L (135-145); Total Protein 6.5 g/dl (6.3-8.2); eGFR > 60.00
[2025-02-16] MEDS: VANCOCIN 275 MG IV (06:35)
--- NOTE | 2025-02-16 08:02 | PHA.VAN.FU ---
Vancomycin Assessment / Plan
- Assessment
Renal Function: Stable
WBC's are: Stable
In the past 24 hrs, patient has been: Febrile (Tmax 100.9)
- Dosing Plan
Continue: Vanc 1250mg IV q24H
- Monitoring Plan
No level(s) ordered at this time: Consider levels after 02/18 dose.
- Follow Up
Pharmacy will continue to follow.
Vancomycin Follow UP
- -
Patient Age: 69
Patient Sex: Male
Vancomycin Day #: 4
Indication: Genito-Urinary Tract
Requesting Provider: Dr. Phelps
Pertinent Antimicrobial Allergies:
no pertinent antibiotic allergies
Height / Weight:
Height 5 ft 8 in
Actual Weight 68.6 kg
IBW in k.4
Pertinent Past Medical History: quadraplegic, DM2, suprapubic catheter, multiple stones, BMI 18.5
- Vital Signs / Lab Results
Temp Pulse Resp BP Pulse Ox
100.9 F H 61 26 141/71 95
02/16/25 02:35 02/16/25 04:00 02/16/25 04:00 02/16/25 04:00 02/16/25 04:00
Lab Results - Hematology
02/14/25 02/15/25 02/16/25
09:49 06:30 05:16
WBC 17.7 H 15.0 H 14.9 H
Lab Results - Chemistry
02/14/25 02/15/25 02/16/25
09:49 06:30 05:16
BUN 13 12 10
Creatinine 1.0 0.9 1.0
Estimated Creat Clear 53 71 66
Albumin 3.2 L 3.1 L 3.3 L
02/13/25 02/13/25 02/14/25
08:33 13:29 00:54
Lactic Acid 4.2 H* 4.2 H* Cancelled
02/14/25
09:49
Lactic Acid 1.1
Microbiology Results
02/13/25 01:52 Blood Culture - Preliminary
Blood/Venous Klebsiella pneumoniae
Morganella morganii
Enterococcus faecalis
Proteus species
Gram Stain - Preliminary
02/13/25 08:56 Urine Culture - Preliminary
Urine Gram negative bacilli
02/14/25 10:04 Blood Culture - Preliminary
Blood/Venous No Growth in 24 hours- Final report to follow
02/14/25 09:49 Blood Culture - Preliminary
Blood/Venous No Growth in 24 hours- Final report to follow
02/13/25 09:15 MRSA Screen - Final
Nose No Methicillin Resistant Staphylococcus aureus isolated.
02/13/25 01:52 Urine Culture - Preliminary
Urine
Therapeutic Drug Monitoring
Random Vancomycin 12.9 ug/ml 02/15/25 06:30
[2025-02-16 08:14] LABS: Glucose - Point of Care 110 mg/dl (70-99)
[2025-02-16] MEDS: NOVOLOG FLEXPEN-LOW RESISTANCE SC ×2 (08:17→17:42)
[2025-02-16] MEDS: LEXAPRO 5 MG PO (09:15)
[2025-02-16] MEDS: SENOKOT 8.6 MG PO (09:16)
[2025-02-16] MEDS: MIRALAX PO (09:16)
[2025-02-16] MEDS: NSS (PRESERVATIVE FREE) 10 ML IV (09:16)
[2025-02-16] MEDS: PROTONIX IV 40 MG IV (09:16)
[2025-02-16] MEDS: ULTRAM 50 MG PO ×2 (09:22→20:20)
--- NOTE | 2025-02-16 11:11 | W.PN.ID1 ---
Date of Service
Date of Service: February 16, 2025
Today's Communication
continue zosyn, stop vanc
Assessment / Plan
Polymicrobial blood culture
fever
Complicated UTI
lactic acidosis - resolved
Suprapubic catheter for neurogenic bladder
quadriplegia
stage II
- 02/13 blood culture x1 done with K pneumoniae, M morganii, Proteus and Enterococcus
- urine cultures - K pneumoniae, M morganii, Proteus
- 02/14 repeat blood cultures x2 in progress
- CT a/p with IV contrast without abdominal or pelvic lesions
- tiny about 1 cm x 1/4 cm superficial stage II pressure ulcer without surrounding erythema, warmth or drainage unlikely to be the source of bacteremia
- continue zosyn for today, likely switch to orals tomorrow
- stop vancomycin
Chief Complaint
-: Fever and Other (Polymicrobial blood culture, Complicated UTI)
Subjective / Review of Systems
fevers ongoing
bp stable
no complaints, wasnt aware of fever last night
Vital Signs / Physical Exam
Vital Signs
Vital Signs
Temp Pulse Resp BP Pulse Ox
98.3 F 71 21 112/61 93
02/16/25 08:13 02/16/25 11:00 02/16/25 11:00 02/16/25 10:00 02/16/25 11:00
Physical Exam
Constitutional: No Acute Distress
Cardiovascular: Regular Rate and S1/S2; Negative Murmur or Rub
Pulmonary: Clear and Symmetric; Negative Wheezes or Rales
Gastrointestinal: Soft, Non Tender, Non Distended and Normal Bowel Sounds
Skin: Warm and Dry; Negative Rash or Jaundice
Objective Data
Lab Data
Lab Results
02/16/25 05:16
02/16/25 05:16
PT 14.6 Sec (11.4-14.6) 02/13/25 01:52
INR 1.16 02/13/25 01:52
Estimated Creat Clear 66 ml/min 02/16/25 05:16
Lactic Acid 1.1 mmol/L (0.7-2.0) 02/14/25 09:49
Total Bilirubin 0.6 mg/dl (0.2-1.3) 02/16/25 05:16
AST 50 U/L (17-59) 02/16/25 05:16
ALT 56 U/L (0-50) H 02/16/25 05:16
Alkaline Phosphatase 160 U/L (38-126) H 02/16/25 05:16
Most recent labs reviewed.
Micro Results:
02/14/25 10:04 Blood Culture - Preliminary
Blood/Venous No Growth in 48 hours- Final report to follow
02/14/25 09:49 Blood Culture - Preliminary
Blood/Venous No Growth in 48 hours- Final report to follow
02/13/25 01:52 Urine Culture - Final
Urine Klebsiella pneumoniae
Proteus mirabilis
Morganella morganii
02/13/25 08:56 Urine Culture - Final
Urine Klebsiella pneumoniae
Proteus mirabilis
Morganella morganii
02/13/25 01:52 Blood Culture - Final
Blood/Venous Klebsiella pneumoniae
Morganella morganii
Enterococcus faecalis
Proteus mirabilis
Gram Stain - Final
02/13/25 09:15 MRSA Screen - Final
Nose No Methicillin Resistant Staphylococcus aureus isolated.
02/13/25 03:28 Influenza Types A & B (ÁNGEL) - Final
Nasal Swab Negative for Influenza A & B, NAAT
Negative results must be combined with clinical observations
and patient history.
Nucleic Acid Amplification test (NAAT)performed on the
[employer] platform.
Organism 1 Klebsiella pneumoniae
Organism 2 Morganella morganii
Organism 3 Enterococcus faecalis
Organism 4 Proteus mirabilis
K.PNEUMO M.MORGANII ENTFCL
M.I.C. RX M.I.C. RX M.I.C. RX
--------- --- --------- --- --------- ---
Amoxicillin/Potas. Clavulanate <=8/4 S >16/8 R
Ampicillin >16 R >16 R <=2 S
Ampicillin/Sulbactam 8/4 S >16/8 R
Aztreonam <=4 S >16 R
Cefazolin <=2 S >16 R
Cefepime <=2 S
Ceftriaxone <=1 S
Ertapenem <=0.5 S <=0.5 S
Ciprofloxacin <=0.25 S <=0.25 S
Gentamicin <=2 S <=2 S
Gentamicin Synergy Screen >500 R
Meropenem <=1 S <=1 S
Piperacillin/Tazobactam <=8 S <=8 S
Tetracycline <=4 S >8 R
Tobramycin <=2 S <=2 S
Trimethoprim/Sulfamethoxazole <=2/38 S <=2/38 S
Vancomycin 2 S
P.MIRABILI
M.I.C. RX
--------- ---
Amoxicillin/Potas. Clavulanate <=8/4 S
Ampicillin <=8 S
Ampicillin/Sulbactam <=4/2 S
Aztreonam <=4 S
Cefazolin <=2 S
Cefepime
Ceftriaxone
Ertapenem <=0.5 S
Ciprofloxacin <=0.25 S
Gentamicin <=2 S
Gentamicin Synergy Screen
Meropenem <=1 S
Piperacillin/Tazobactam <=8 S
Tetracycline >8 R
Tobramycin <=2 S
Trimethoprim/Sulfamethoxazole <=2/38 S
Vancomycin
Care Review
Plan reviewed with: Physician (Dr Carpio - prefer to follow another day given fever)
[2025-02-16 11:36] LABS: Glucose - Point of Care 182 mg/dl (70-99)
--- NOTE | 2025-02-16 12:30 | W.PN.URO.CBU ---
Today's Communication / Plan
-
abx per ID
no uro-surgical intervention indicated
Assessment / Plan
-
69M with neurogenic bladder and chronic suprapubic tube
Admitted with septic UTI and emphysematous cystitis
mild bilateral hydronephrosis
UTI --polymicrobial
- Emphysematous cystitis does not require surgical intervention - treat as complicated UTI
Hydronephrosis
-- addressed by SPT correction
Kidney stones
- bilateral renal stones, small nonobstructing distal ureteral stone, several bladder stones including likely R hutch diverticulum or chronic stone in distal ureter
Diagnosis
-
Date of Service: February 16, 2025
-
Patient Diagnosis:
Sepsis
UTI
Neurogenic bladder
emphysematous cystitis
Objective
-
Vital Signs
Temp Pulse Resp BP Pulse Ox
98.3 F 71 21 112/61 93
02/16/25 08:13 02/16/25 11:00 02/16/25 11:00 02/16/25 10:00 02/16/25 11:12
Intake and Output
02/15/25 02/16/25 02/17/25
06:59 06:59 06:59
Intake Total 1695 / 1695 1145 / 1145
Output Total 2500 / 2500 3875 / 3875 950 / 950
Balance -2500 / -2500 -2180 / -2180 195 / 195
Intake:
Oral fluids 1245 / 1245 120 / 120
IV fluids (Total) 750 / 750
IV piggybacks 450 / 450 275 / 275
Output:
Urine, [place] 1300 / 1300 325 / 325 950 / 950
Suprapubic output 1200 / 1200 3550 / 3550
Laboratory Results
02/16/25 05:16
12/07/25 05:16
Physical Exam
-
General - well developed, well nourished, no acute distress
Chest - clear bilaterally
Abdomen - soft, non-tender, positive bowel sounds, no CVAT, no incisional pain or distention
Genitalia - normal
Rectal - normal
Skin - warm & dry with no rash
Neuro - AOx3, no motor deficits
Extremities - no clubbing, no cyanosis, no edema
Incision - clean, dry
Dressing - clean, dry, intact
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
[2025-02-16] MEDS: NOVOLOG FLEXPEN-LOW RESISTANCE 1 UNITS SC (12:52)
--- NOTE | 2025-02-16 15:25 | PTCARENOTE ---
Report given to Sera VERAS for transfer to room 435. Patient educated about plan of care and transfer.
[2025-02-16 17:33] LABS: Glucose - Point of Care 130 mg/dl (70-99)
[2025-02-16] MEDS: LOVENOX 40 MG SC (17:43)
[2025-02-16] MEDS: LIORESAL 5 MG PO (20:21)
[2025-02-16] MEDS: ATARAX 25 MG PO (20:21)
[2025-02-16 21:19] LABS: Glucose - Point of Care 165 mg/dl (70-99)
[2025-02-17] MEDS: ZOSYN 50 IV ×2 (02:11→10:33)
[2025-02-17 03:05] VITALS: BP 138/68
[2025-02-17 07:00] VITALS: BP 152/67
[2025-02-17 08:04] LABS: Glucose - Point of Care 116 mg/dl (70-99)
[2025-02-17] MEDS: LEXAPRO 5 MG PO (08:31)
[2025-02-17] MEDS: NSS (PRESERVATIVE FREE) 10 ML IV (08:31)
[2025-02-17] MEDS: MIRALAX 17 GRAMS PO (08:31)
[2025-02-17] MEDS: SENOKOT 8.6 MG PO (08:32)
[2025-02-17] MEDS: PROTONIX IV 40 MG IV (08:32)
--- NOTE | 2025-02-17 09:41 | W.PN.ID1 ---
Date of Service
Date of Service: February 17, 2025
Today's Communication
- switch to ciprofloxacin 500 mg PO BID and amoxicillin 500 mg PO TID 02/12-02/25
- stable for dc from ID perspective
Assessment / Plan
Polymicrobial blood culture
fever
Complicated UTI
lactic acidosis - resolved
Suprapubic catheter for neurogenic bladder
quadriplegia
stage II
- 02/13 blood culture x1 done with K pneumoniae, M morganii, Proteus and Enterococcus
- urine cultures - K pneumoniae, M morganii, Proteus
- asked lab to release ciprofloxacin sensi on the Enterococcus
- 02/14 repeat blood cultures x2 in progress, no growth to date
- CT a/p with IV contrast without abdominal or pelvic lesions
- tiny about 1 cm x 1/4 cm superficial stage II pressure ulcer without surrounding erythema, warmth or drainage unlikely to be the source of bacteremia
- switch to ciprofloxacin 500 mg PO BID and amoxicillin 500 mg PO TID 02/12-02/25
- stable for dc from ID perspective
Chief Complaint
-: Fever and Other (Polymicrobial blood culture, Complicated UTI)
Subjective / Review of Systems
now afebrile 24 hours
bp stable
no events overnight
Vital Signs / Physical Exam
Vital Signs
Vital Signs
Temp Pulse Resp BP Pulse Ox
97.3 F 55 12 152/67 95
02/17/25 07:00 02/17/25 07:00 02/17/25 07:00 02/17/25 07:00 02/17/25 07:00
Physical Exam
Constitutional: No Acute Distress and Chronically Ill
Cardiovascular: Regular Rate and S1/S2; Negative Murmur or Rub
Pulmonary: Clear and Symmetric; Negative Wheezes or Rales
Gastrointestinal: Soft, Non Tender, Non Distended and Normal Bowel Sounds
Genito-Urinary: Negative Suprapubic Tenderness
Skin: Warm and Dry; Negative Rash or Jaundice
Objective Data
Lab Data
PT 14.6 Sec (11.4-14.6) 02/13/25 01:52
INR 1.16 02/13/25 01:52
Estimated Creat Clear 66 ml/min 02/16/25 05:16
Lactic Acid 1.1 mmol/L (0.7-2.0) 02/14/25 09:49
Total Bilirubin 0.6 mg/dl (0.2-1.3) 02/16/25 05:16
AST 50 U/L (17-59) 02/16/25 05:16
ALT 56 U/L (0-50) H 02/16/25 05:16
Alkaline Phosphatase 160 U/L (38-126) H 02/16/25 05:16
Most recent labs reviewed.
Micro Results:
02/14/25 10:04 Blood Culture - Preliminary
Blood/Venous No Growth in 48 hours- Final report to follow
02/14/25 09:49 Blood Culture - Preliminary
Blood/Venous No Growth in 48 hours- Final report to follow
02/13/25 01:52 Urine Culture - Final
Urine Klebsiella pneumoniae
Proteus mirabilis
Morganella morganii
02/13/25 08:56 Urine Culture - Final
Urine Klebsiella pneumoniae
Proteus mirabilis
Morganella morganii
02/13/25 01:52 Blood Culture - Final
Blood/Venous Klebsiella pneumoniae
Morganella morganii
Enterococcus faecalis
Proteus mirabilis
Gram Stain - Final
02/13/25 09:15 MRSA Screen - Final
Nose No Methicillin Resistant Staphylococcus aureus isolated.
02/13/25 03:28 Influenza Types A & B (ÁNGEL) - Final
Nasal Swab Negative for Influenza A & B, NAAT
Negative results must be combined with clinical observations
and patient history.
Nucleic Acid Amplification test (NAAT)performed on the
[employer] platform.
Organism 1 Klebsiella pneumoniae
Organism 2 Morganella morganii
Organism 3 Enterococcus faecalis
Organism 4 Proteus mirabilis
K.PNEUMO M.MORGANII ENTFCL
M.I.C. RX M.I.C. RX M.I.C. RX
--------- --- --------- --- --------- ---
Amoxicillin/Potas. Clavulanate <=8/4 S >16/8 R
Ampicillin >16 R >16 R <=2 S
Ampicillin/Sulbactam 8/4 S >16/8 R
Aztreonam <=4 S >16 R
Cefazolin <=2 S >16 R
Cefepime <=2 S
Ceftriaxone <=1 S
Ertapenem <=0.5 S <=0.5 S
Ciprofloxacin <=0.25 S <=0.25 S
Gentamicin <=2 S <=2 S
Gentamicin Synergy Screen >500 R
Meropenem <=1 S <=1 S
Piperacillin/Tazobactam <=8 S <=8 S
Tetracycline <=4 S >8 R
Tobramycin <=2 S <=2 S
Trimethoprim/Sulfamethoxazole <=2/38 S <=2/38 S
Vancomycin 2 S
P.MIRABILI
M.I.C. RX
--------- ---
Amoxicillin/Potas. Clavulanate <=8/4 S
Ampicillin <=8 S
Ampicillin/Sulbactam <=4/2 S
Aztreonam <=4 S
Cefazolin <=2 S
Cefepime
Ceftriaxone
Ertapenem <=0.5 S
Ciprofloxacin <=0.25 S
Gentamicin <=2 S
Gentamicin Synergy Screen
Meropenem <=1 S
Piperacillin/Tazobactam <=8 S
Tetracycline >8 R
Tobramycin <=2 S
Trimethoprim/Sulfamethoxazole <=2/38 S
Vancomycin
Care Review
Plan reviewed with: Physician (Dr Carpio - final abx recs)
[2025-02-17] MEDS: NOVOLOG FLEXPEN-LOW RESISTANCE SC ×2 (10:27→12:14)
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
--- NOTE | 2025-02-17 10:45 | CM ---
Addendum entered by Jacquie Griffin 02/17/25 14:42:
1600 transport set up, notified Cee earl at [facility]
Addendum entered by Jacquie Griffin 02/17/25 13:41:
Patient discharge today
updated Cee liatanja at [facility]
IMM explained to patient, In chart
PLAN: Return to [facility] TODAY
report #: [phone] ext [id number]
fax #: [phone]
transportation forms on chart
Original Note:
Patient resides at [facility]
referral in [facility]
PLAN: Return to [facility] when stable
report #: [phone] ext [id number]
fax #: [phone]
[2025-02-17 10:51] LABS: ALT (SGPT) 42 U/L (0-50); AST (SGOT) 29 U/L (17-59); Albumin 3.5 g/dl (3.5-5.0); Alkaline Phosphatase 146 U/L (38-126); Blood Urea Nitrogen 11 mg/dl (9-20); Calcium 8.9 mg/dl (8.4-10.2); Carbon Dioxide 25 mmol/L (22-30); Chloride 105 mmol/L (98-107); Estimated Creatinine Clearance 60 ml/min; Glucose 120 mg/dl (70-99); Potassium 4.1 mmol/L (3.5-5.1); Sodium 136 mmol/L (135-145); Total Protein 7.1 g/dl (6.3-8.2); eGFR > 60.00
[2025-02-17 11:03] VITALS: BP 122/69
[2025-02-17 11:03] LABS: Hematocrit 36.0 % (39.0-52.0); Hemoglobin 12.7 g/dL (13.0-18.0); Mean Corp Hgb Conc. 35.3 g/dL (33.0-37.0); Mean Corpuscular Volume 84.1 fL (80.0-94.0); Nucleated Red Blood Cells % 0 % (-); Platelet Count 197 10^3/uL (130-400); Red Cell Dist. Width 14.9 % (11.5-14.5)
--- NOTE | 2025-02-17 11:58 | PN.CDI ---
CDI
- -
CDI:
Physician Documentation Request
Admit Date: 02/13/25 05:07
Dear Doctor,
Patient admitted for sepsis.
02/15 PCN: 'Stage 2 on sacrum with silicone foam intact.'
Nursing documentation clinical panel wound care
02/16/25
14:30
Appearance- [Sacrum] [place] wound bed
Dressing appearance [Sacrum] Dry/intact
Pressure injury stage [Sacrum] Stage 2
Surrounding Skin - [Sacrum] Local erythema
Treatment provided [Sacrum] Cleansed with
saline
Silicone border
foam
Physician documentation of the type and location of wounds is required for compliant documentation. Based on the above clinical findings and your assessment, please provide the following in your progress note:
1. Location of the ulcer/wound, including laterality.
2. Type (etiology) of ulcer/wound:
- Diabetic ulcer
- Arterial (ischemic) ulcer
- Traumatic wound
- Venous stasis ulcer
- Pressure (decubitus) ulcer
- Non-healing surgical wound
- Other
- Unable to determine
3. For a non-pressure ulcer, please indicate the depth/severity:
- Limited to the breakdown of skin
- With fat layer exposed
- With necrosis of muscle
- With necrosis of bone
- Other
- Unable to determine
4. If a pressure ulcer, please also include the stage* of the ulcer:
- Stage 1 - Skin intact, non-blanchable redness
- Stage 2 - Partial thickness loss of dermis, includes intact or open blister
- Stage 3 - Full thickness tissue not including bone, tendon or muscle
- Stage 4 - Full thickness tissue loss, including exposed bone, tendon or muscle
- Unstageable - Full thickness loss in which the base of the ulcer is covered by slough (yellow, sinclair, chiu, green or brown) and/or eschar (sinclair, brown or black) in the wound bed.
- Unable to determine
Use of terms such as suspected, likely, concern for, or probable (associated with a specific diagnosis that is being evaluated, monitored, or treated as if it exists) are acceptable and can be coded in the inpatient setting, when documented at the
time of discharge.
Thank you,
Eugenia Werner RN, BSN
CDI Specialist
Available via [employer] text
Please use your independent medical judgment in providing your response.
*Source: National Pressure Ulcer Advisory Panel (NPUAP)
[2025-02-17 12:04] LABS: Glucose - Point of Care 111 mg/dl (70-99)
[2025-02-17] MEDS: AMOXIL 500 MG PO ×2 (12:13→15:53)
[2025-02-17] MEDS: CIPRO 500 MG PO (12:13)
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
[2025-02-17 15:31] VITALS: BP 127/62
== END 2025-02-17 17:20 | DRG 698 ==
LOC: 4 WEST ACU 05:07
PROVIDERS: ADMITTING PHYSICIAN Hospitalist; ATTENDING PHYSICIAN Internal Medicine; CONSULT PHYSICIAN Student in an Organized Health Care Education/Training Program; CONSULT PHYSICIAN Urology; EMERGENCY PHYSICIAN Emergency Medicine; FAMILY PHYSICIAN Internal Medicine
DX: T83.518A Infection and inflammatory reaction due to other urinary catheter, initial encounter (principal); A41.9 Sepsis, unspecified organism; G82.50 Quadriplegia, unspecified; R65.20 Severe sepsis without septic shock; E87.1 Hypo-osmolality and hyponatremia; E87.20 Acidosis, unspecified; I95.9 Hypotension, unspecified; N13.30 Unspecified hydronephrosis; N30.80 Other cystitis without hematuria; E11.9 Type 2 diabetes mellitus without complications; E83.119 Hemochromatosis, unspecified; F32.A Depression, unspecified; F41.9 Anxiety disorder, unspecified; Z66 Do not resuscitate; E83.42 Hypomagnesemia; D69.6 Thrombocytopenia, unspecified; Y84.6 Urinary catheterization as the cause of abnormal reaction of the patient, or of later complication, without mention of misadventure at the time of the procedure; L89.152 Pressure ulcer of sacral region, stage 2
CPT/HCPCS: 51702; 71045; 74177; 80053; 80202; 81003; 81015; 82248; 82962; 83036; 83605; 83735; 84100; 84443; 85025; 85027; 85610; 86850; 86900; 86901; 87040; 87070; 87077; 87086; 87154; 87186; 87205; 87502; 87811; 93005; 96361; 96365; 96367; 99291; Q9967